=== PATIENT | female | born 1940 | race Caucasian/White ===

== ENCOUNTER → 2018-10-07 | Outpatient (CLI) | payer MEDICARE, MEDICAID ==
--- NOTE | 2018-10-07 10:15 | WOMENS IMAGING REPORT ---
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 TECHNIQUE: Dual-Energy X-ray Absorptiometry (DEXA) of the AP Spine and Hip. LIMITATIONS: None. FINDINGS: LUMBAR SPINE: The bone mineral density (BMD) measured from L1-L4 in the AP projection correlates with a T-score of -2.7, which is osteoporosis as defined by the World Health Organization. HIP: The bone mineral density (BMD) measured in the left hip correlates with a T-score of -2.2, which is o steopenia as defined by the World Health Organization. IMPRESSION: 1. LUMBAR SPINE: OSTEOPOROSIS. 2. HIP: OSTEOPENIA. COMMENT: The World Health Organization defines low BMD as follows: T-score: Normal: Greater than -1.0 Osteopenia: Between -1.0 and -2.5 Osteoporosis: Less than -2.5 without fractures Established osteoporosis: Less than -2.5 with fractures In general, you may wish to consider: Diagnosis Treatment Follow-up DEXA Normal BMD Prevention 2-3 years Osteopenia Prevention/Therapy 1-2 years Osteoporosis Therapy Yearly TECHNICAL DOCUMENTATION: JOB ID: [id number] [employer]- All Rights Reserved Reading location - IP/workstation name: [email or web address]
== END ==
LOC: WI 10:04
PROVIDERS: ATTEND Physician Assistant
DX: M81.0 Age-related osteoporosis without current pathological fracture (principal)
CPT/HCPCS: 77080

== ENCOUNTER → 2018-12-05 | Outpatient (CLI) | payer MEDICARE, MEDICAID ==
--- NOTE | 2018-12-05 14:28 | RADIOLOGY REPORT (SQ) ---
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 TECHNIQUE: CT scan performed of the chest without intravenous contrast. Images reviewed with lung, soft tissue and bone windows. Reconstructed coronal and sagittal MPR images reviewed. All images st ored on PACS. All CT scanners at this facility use dose modulation, iterative reconstruction, and/or weight based d osing when appropriate to reduce radiation dose to as low as reasonably achievable (ALARA). [facility]: Dose Right [facility]: CareDose [facility]: Dose Right [facility]: Teradose 4D [facility]: [employer] RADIATION DOSE: Total exam DLP: 1487.29 mGy. LIMITATIONS: No technical limitations. FINDINGS: LUNGS AND PLEURA: A 6-7 mm right perifissural nodule, axial image 60, series 6. Very tin y subcentimeter nodule in the periphery of the left upper lobe, axial image 38, series 6. Linear nod ular parenchymal opacity in the right middle lobe, axial images 64-68 and left lingula, axial image 6 0, series 6. Minimal linear scarring or atelectasis in the lower lobes. Slight thickening of the bro nchial prather centrally, may be on a chronic basis. No pneumothorax or pleural effusion. The central airways are clear. HILAR AND MEDIASTINAL STRUCTURES: Small to borderline mediastinal lymph nodes, several of which cont ain a hilus of fat and may be on the benign reactive basis. HEART AND VASCULAR STRUCTURES: Dense atherosclerotic changes involving the thoracic aorta. Coronary artery calcifications. No aneurysm. No pericardial effusion. UPPER ABDOMEN: Please see CT abdomen report. THYROID AND OTHER SOFT TISSUES: No masses. No adenopathy. BONES: Dextroconvex scoliosis of the thoracic spine. HARDWARE: None in the chest. OTHER: Prior right mastectomy. IMPRESSION: 1. Small bilateral subcentimeter pulmonary nodules, and linear nodular parenchymal opac ities in the right middle lobe and left lingula. A follow-up three-month noncontrast CT chest examin ation is suggested. 2. Prior right mastectomy. 3. Additional findings as above. TECHNICAL DOCUMENTATION: JOB ID: [id number] Quality ID # 436: Final reports with documentation of one or more dose reduction techniques (e.g., Au tomated exposure control, adjustment of the mA and/or kV according to patient size, use of iterative reconstruction technique) 2010 [employer]- All Rights Reserved Reading location - IP/workstation name: [email or web address]
--- NOTE | 2018-12-05 14:44 | RADIOLOGY REPORT (SQ) ---
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 TECHNIQUE: CT scan of the abdomen and pelvis performed without intravenous or oral contrast. Images reviewed with lung, soft tissue, and bone windows. Reconstructed coronal and sagittal MPR images revi ewed. All images stored on PACS. All CT scanners at this facility use dose modulation, iterative reconstruction, and/or weight based d osing when appropriate to reduce radiation dose to as low as reasonably achievable (ALARA). [facility]: Dose Right [facility]: CareDose [facility]: Dose Right [facility]: Teradose 4D [facility]: [employer] RADIATION DOSE: CT Rad equipment meets quality standard of care and radiation dose reduction techniq ues were employed. CTDIvol: 11.6 - 19.4 mGy. DLP: 1487 mGy-cm LIMITATIONS: None. FINDINGS: LOWER CHEST: Please see CT chest report. NON-CONTRASTED LIVER, SPLEEN, ADRENALS: Evaluation limited by lack of IV contrast. No identified sign ificant masses. PANCREAS: No masses. No peripancreatic inflammatory changes. GALLBLADDER: Very tiny gallstones. No inflammatory changes to suggest cholecystitis. RIGHT KIDNEY AND URETER: No suspicious masses. Assessment limited by lack of IV contrast. No signif icant calcifications. No hydronephrosis or hydroureter. LEFT KIDNEY AND URETER: No suspicious masses. Assessment limited by lack of IV contrast. No signifi cant calcifications. No hydronephrosis or hydroureter. AORTA AND RETROPERITONEUM: Left retro-aortic renal vein, normal anatomic variant. Mild atherosclero tic changes involving the abdominal aorta and branch vessels. 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 No retroperitoneal masses or adenopathy. BOWEL AND PERITONEAL CAVITY: Colonic diverticulae. Mild thickening of the wall of the sigmoid colon may be on a chronic basis related to prior inflammatory changes. No abscess. No free fluid. APPENDIX: Prior appendectomy. PELVIS, BLADDER, AND ABDOMINAL WALL: Prior hysterectomy. Small fat containing dairy umbilical herni a. No free fluid. The urinary bladder is incompletely distended. BONES: Slight Grade 1 anterolisthesis of L4 on L5 with degenerative disc disease at L4-5 and L5-S1. OTHER: No other significant finding. IMPRESSION: 1. Colonic diverticulae, more so in the region of the sigmoid colon. Mild thickening o f the wall of the sigmoid colon, may be on a chronic basis related prior inflammatory changes. 2. Very tiny gallstones. 3. Atherosclerotic changes involving the abdominal aorta. 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 4. Additional findings as above. COMMENT: Quality ID # 436: Final reports with documentation of one or more dose reduction techniques (e.g., Automated exposure control, adjustment of the mA and/or kV according to patient size, use of iterative reconstruction technique) TECHNICAL DOCUMENTATION: JOB ID: [id number] [employer]- All Rights Reserved Reading location - IP/workstation name: [email or web address]
== END ==
LOC: RAD 13:10
PROVIDERS: ATTEND Internal Medicine Hematology & Oncology
DX: C50.919 Malignant neoplasm of unspecified site of unspecified female breast (principal); C78.00 Secondary malignant neoplasm of unspecified lung; C50.911 Malignant neoplasm of unspecified site of right female breast; Z17.0 Estrogen receptor positive status [ER+]
CPT/HCPCS: 71250; 74176

== ENCOUNTER → 2020-08-03 | Outpatient (CLI) | payer MEDICARE, MEDICAID ==
--- NOTE | 2020-08-03 12:08 | RADIOLOGY REPORT (SQ) ---
EXAM DESCRIPTION: CT CHEST WITH; CT ABD/PELVIS WITH IV ONLY IMAGES COMPLETED DATE/TIME: 08/03/2020 10:10 am; 08/03/2020 10:12 am REASON FOR STUDY: LUNG CANCER; MALIGNANT NEOPLASM OF UNSP SITE OF UNSPECIFIED FEMALE BREAST C50.919 MALIGNANT NEOPLASM OF UNSP SITE OF UNSPECIFIED FEMAL C78.00 SECONDARY MALIGNANT NEOPLASM OF UNSPECI FIED LUNG R10.9 UNSPECIFIED ABDOMINAL PAIN CONTRAST TYPE AND DOSE: contrast/concentration: Isovue 350.00 mmol/ml; Total Contrast Delivered: 97. 0 ml; Total Saline Delivered: 38.9 ml RENAL FUNCTION: Creatinine 0.7 COMPARISON: None. TECHNIQUE: CT scan of the chest performed using helical scanning technique with dynamic intravenous contrast injection. Images reviewed with lung, soft tissue and bone windows. Reconstructed coronal a nd sagittal MPR images reviewed. All images stored on PACS. All CT scanners at this facility use dose modulation, iterative reconstruction, and/or weight based d osing when appropriate to reduce radiation dose to as low as reasonably achievable (ALARA). [facility]: Dose Right [facility]: CareDose [facility]: Dose Right [facility]: Teradose 4D [facility]: [employer] RADIATION DOSE: CT Rad equipment meets quality standard of care and radiation dose reduction techniq ues were employed. CTDIvol: 18.1 - 26.3 mGy. DLP: 3168 mGy-cm. . LIMITATIONS: None. FINDINGS: AXILLAE: No adenopathy. CHEST WALL: Prior right mastectomy. LUNGS: Stable bilateral pulmonary nodules. Perifissural nodule on the right again measures approxima tely 6 mm in greatest diameter. This is best demonstrated on series 4, image 24. 1.7 mm nodule in t he periphery of the left upper lobe is unchanged. This is best demonstrated on series 4, image 18. The right middle lobe and lingular nodular opacities are stable and most likely represents scar. No focal consolidation. No new nodules. No endobronchial lesions. PLEURA: No effusions. No calcifications. THYROID: No masses or significant asymmetry. HILAR AND MEDIASTINAL STRUCTURES: Stable. No pathologic adenopathy. AORTA AND GREAT VESSELS: No aneurysm. No dissection. PULMONARY ARTERIES: No identified pulmonary emboli. Study not optimized for the pulmonary arteries. HEART: No pericardial effusion. HARDWARE AND LIFELINES: None. BONES: No significant finding. OTHER: No other significant finding. IMPRESSION: Stable CT of the chest. Small parenchymal nodules most likely benign. The largest is o n the right an measures approximately 6 mm in diameter. This is perifissural in location. COMPARISON: None. RADIATION DOSE: CT Rad equipment meets quality standard of care and radiation dose reduction techniq ues were employed. CTDIvol: 18.1 - 26.3 mGy. DLP: 3168 mGy-cm. mGy. TECHNIQUE: CT scan of the abdomen and pelvis performed with intravenous and oral contrast using ricky mike scanning technique with dynamic intravenous contrast injection. Images reviewed with lung, soft tissue and bone windows. Reconstructed coronal and sagittal MPR images reviewed. Delayed images for evaluation of the urinary system also acquired and evaluated. All images stored on PACS. All CT scanners at this facility use dose modulation, iterative reconstruction, and/or weight based d osing when appropriate to reduce radiation dose to as low as reasonably achievable (ALARA). [facility]: Dose Right [facility]: [employer] [facility]: Dose Right [facility]: Teradose 4D [facility]: [employer] FINDINGS: LIVER: Normal size. No masses. No dilated ducts. SPLEEN: Normal size. No focal lesions. PANCREAS: No masses. No significant calcifications. No adjacent inflammation or peripancreatic flui d collections. Pancreatic duct not dilated. GALLBLADDER: No identified stones by CT criteria. No inflammatory changes to suggest cholecystitis. ADRENAL GLANDS: No significant masses or asymmetry. RIGHT KIDNEY AND URETER: No solid masses. No significant calcifications. No hydronephrosis or hyd roureter. LEFT KIDNEY AND URETER: No solid masses. No significant calcifications. No hydronephrosis or hydr oureter. AORTA AND VESSELS: Stable in appearance. Atherosclerotic change. Probable short-segment chronic dis section or complex plaque. RETROPERITONEUM: No retroperitoneal adenopathy, hemorrhage or masses. LARGE AND SMALL BOWEL: Scattered diverticuli. No acute diverticulitis. APPENDIX: Prior appendectomy. ABDOMINAL WALL: No hernia or masses. PERITONEAL CAVITY: No free air. No free fluid. No peritoneal implants or masses. PELVIS: No mass or free fluid. Normal bladder. BONES: Degenerative changes in the spine with grade 1 anterolisthesis of L4 on L5. OTHER: No other significant finding. IMPRESSION: No evidence of metastatic disease in the abdomen or pelvis. TECHNICAL DOCUMENTATION: JOB ID: [id number] Quality ID # [id number]: Final reports with documentation of one or more dose reduction techniques (e.g., Au tomated exposure control, adjustment of the mA and/or kV according to patient size, use of iterative reconstruction technique) 2010 [employer]- All Rights Reserved Reading location - IP/workstation name: [email or web address]
--- NOTE | 2020-08-03 14:58 | RADIOLOGY REPORT (SQ) ---
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 RADIONUCLIDE AND DOSE: 21.2 millicuries Tc99m MDP. The route of agent administration: Intravenous. ADDITIONAL DRUGS AND DOSES: None. TECHNIQUE: Routine delayed images at 3 hour post radionuclide injection acquired of the bony skeleto n including anterior and posterior whole-body projections and additional focused images as needed. LIMITATIONS: None. FINDINGS: BONES: Normal visualization without areas of photopenia or increased bony uptake of radiop harmaceutical. KIDNEYS: Symmetric excretion without obstruction. OTHER: No other significant finding. IMPRESSION: NORMAL BONE SCAN. COMMENT: Quality measure 147: Current bone scan is compared with any available plain radiographs, p rior bone scans, and CT/MRI. TECHNICAL DOCUMENTATION: JOB ID: [id number] 2010 [employer]- All Rights Reserved Reading location - IP/workstation name: [email or web address]
--- OUTSIDE RECORDS SUMMARY | 2020-08-04 18:21 | XMS REPORT ---
:1940 Author Organization [facility] [address] [place] [address] Care Team Providers Name Role Phone Adria LOTT Attending Clinician Unavailable Girish LOTT Attending Clinician Unavailable Allergies, Adverse Reactions, Alerts This patient has no known allergies or adverse reactions. Medications This patient has no known medications. Problems This patient has no known problems. Procedures Procedure Date / Time Performed Performing Clinician Devic e OFFICE/OUTPATIENT VISIT, EST 2017-03-14 10:00:00 ASSAY THYROID STIM HORMONE 2017-03-14 10:00:00 ROUTINE VENIPUNCTURE 2017-03-14 10:00:00 ROUTINE VENIPUNCTURE 2016-12-04 11:00:00 ASSAY THYROID STIM HORMONE 2016-12-04 11:00:00 OFFICE/OUTPATIENT VISIT, EST 2016-12-04 11:00:00 ASSAY, TRIIODOTHYRONINE (T3) 2016-08-07 10:15:00 ASSAY OF FREE THYROXINE 2016-08-07 10:15:00 ROUTINE VENIPUNCTURE 2016-08-07 10:15:00 OFFICE/OUTPATIENT VISIT, EST 2016-08-07 10:15:00 ASSAY THYROID STIM HORMONE 2016-08-07 10:15:00 ROUTINE VENIPUNCTURE 2016-04-23 11:30:00 ASSAY THYROID STIM HORMONE 2016-04-23 11:30:00 OFFICE/OUTPATIENT VISIT, EST 2016-04-23 11:30:00 ASSAY OF FREE THYROXINE 2016-04-23 11:30:00 OFFICE/OUTPATIENT VISIT, EST 2016-01-03 10:45:00 GLYCOSYLATED HEMOGLOBIN TEST 2016-01-03 10:45:00 ROUTINE VENIPUNCTURE 2016-01-03 10:45:00 ASSAY THYROID STIM HORMONE 2016-01-03 10:45:00 LIPID PANEL 2016-01-03 10:45:00 COMPREHEN METABOLIC PANEL 2016-01-03 10:45:00 OFFICE/OUTPATIENT VISIT, EST 2015-10-04 10:45:00 OFFICE/OUTPATIENT VISIT, EST 2015-07-04 12:15:00 ASSAY OF CK (CPK) 2015-07-04 12:15:00 ROUTINE VENIPUNCTURE 2015-07-04 12:15:00 LIPID PANEL 2015-07-04 12:15:00 GLYCOSYLATED HEMOGLOBIN TEST 2015-07-04 12:15:00 COMPREHEN METABOLIC PANEL 2015-07-04 12:15:00 OFFICE/OUTPATIENT VISIT, EST 2015-03-24 14:15:00 SPECIAL REPORTS OR FORMS 2014-12-28 00:00:00 ROUTINE VENIPUNCTURE 2014-12-20 14:00:00 OFFICE/OUTPATIENT VISIT, EST 2014-12-20 14:00:00 ASSAY OF CK (CPK) 2014-12-20 14:00:00 ASSAY THYROID STIM HORMONE 2014-12-20 14:00:00 COMPREHEN METABOLIC PANEL 2014-12-20 14:00:00 GLYCOSYLATED HEMOGLOBIN TEST 2014-12-20 14:00:00 LIPID PANEL 2014-12-20 14:00:00 OFFICE/OUTPATIENT VISIT, EST 2014-10-13 14:30:00 OFFICE/OUTPATIENT VISIT, EST 2014-09-22 15:30:00 COMPREHEN METABOLIC PANEL 2014-06-10 10:15:00 URINALYSIS, AUTO, W/O SCOPE 2014-06-10 10:15:00 OFFICE/OUTPATIENT VISIT, EST 2014-06-10 10:15:00 ASSAY OF CK (CPK) 2014-06-10 10:15:00 GLYCOSYLATED HEMOGLOBIN TEST 2014-06-10 10:15:00 LIPID PANEL 2014-06-10 10:15:00 ROUTINE VENIPUNCTURE 2014-06-10 10:15:00 ASSAY THYROID STIM HORMONE 2014-06-10 10:15:00 ASSAY THYROID STIM HORMONE 2014-03-08 10:00:00 ROUTINE VENIPUNCTURE 2014-03-08 10:00:00 OFFICE/OUTPATIENT VISIT, EST 2014-03-08 10:00:00 ROUTINE VENIPUNCTURE 2014-01-14 09:30:00 ASSAY THYROID STIM HORMONE 2014-01-14 09:30:00 Results Test Description Test Time Test Comments Text Results Atomic Results Result Comments TSH 2017-03-14 10:27:00 Test Item Value Reference Range Comments TSH (test code = TSH) 3.58 UIU/ML 0.50-5.80 LIPID [id number] 10:27:00 Test Item Value Reference Range Comments TGL (test code = TGL) 272 MG/DL 30-200 CHOL (test code = CHOL) 182 MG/DL 140-200 HDL (test code = HDL) 59 MG/DL 32-96 CHD (test code = CHD) 32.42 DLDL (test code = DLDL) 84 MG/DL 100-130 CHEM [id number] 10:27:00 Test Item Value Reference Range Comments TP (test code = TP) 7.1 G/DL 6.9-8.5 CO2 (test code = CO2) 26.1 MMOL/L 21.0-32.0 CA (test code = CA) 9.1 MG/DL 8.5-10.1 GLU (test code = GLU) 118 MG/DL 70-110 BUN/CREAT RATIO (test code = BUN/CREAT RATIO) 19 10 -14 ION GAP (test code = ION GAP) 15 4-16 EGFRAA (test code = EGFRAA) 78.21 >60.00 EGFR (test code = EGFR) 64.53 >60.00 BUN (test code = BUN) 17 MG/DL 7-18 ALB (test code = ALB) 3.8 G/DL 3.2-4.7 ALT (test code = ALT) 27 U/L 9-61 CR (test code = CR) 0.9 MG/DL 0.4-1.3 NA (test code = NA) 138 MMOL/L 136-145 GLOB (test code = GLOB) 3.3 1.9-4.5 ALK PHOS (test code = ALK PHOS) 133 U/L 50-136 K (test code = K) 3.6 MMOL/L 3.5-5.1 AST (test code = AST) 21 U/L 9-37 BILT (test code = BILT) 0.3 MG/DL 0.1-1.0 CL (test code = CL) 101 MMOL/L 98-110 [id number] 10:27:00 Test Item Value Reference Range Comments HA1C (test code = HA1C) 6.0 % 4.8-6.0 [id number] 12:07:00 Test Item Value Reference Range Comments HA1C (test code = HA1C) 5.9 % 4.8-6.0 [id number] 12:07:00 Test Item Value Reference Range Comments TSH (test code = TSH) 2.31 UIU/ML 0.50-5.80 CHEM [id number] 12:07:00 Test Item Value Reference Range Comments CL (test code = CL) 105 MMOL/L 98-110 EGFR (test code = EGFR) 86.31 >60.00 BUN (test code = BUN) 14 MG/DL 7-18 TP (test code = TP) 6.9 G/DL 6.9-8.5 BUN/CREAT RATIO (test code = BUN/CREAT RATIO) 20 10 -14 CR (test code = CR) 0.7 MG/DL 0.4-1.3 AST (test code = AST) 22 U/L 9-37 K (test code = K) 4.1 MMOL/L 3.5-5.1 ION GAP (test code = ION GAP) 14 4-16 BILT (test code = BILT) 0.3 MG/DL 0.1-1.0 CO2 (test code = CO2) 26.8 MMOL/L 21.0-32.0 ALT (test code = ALT) 25 U/L 9-61 CA (test code = CA) 9.0 MG/DL 8.5-10.1 EGFRAA (test code = EGFRAA) 104.60 >60.00 NA (test code = NA) 142 MMOL/L 136-145 ALB (test code = ALB) 3.5 G/DL 3.2-4.7 GLOB (test code = GLOB) 3.4 1.9-4.5 ALK PHOS (test code = ALK PHOS) 128 U/L 50-136 GLU (test code = GLU) 99 MG/DL 70-110 LIPID [id number] 12:07:00 Test Item Value Reference Range Comments CHOL (test code = CHOL) 167 MG/DL 140-200 HDL (test code = HDL) 68 MG/DL 32-96 TGL (test code = TGL) 129 MG/DL 30-200 DLDL (test code = DLDL) 77 MG/DL 100-130 CHD (test code = CHD) 40.72 FREE T4.2016-08-07 11:39:00 Test Item Value Reference Range Comments FT4 (test code = FT4) 1.33 NG/DL 0.75-1.54 LIPID [id number] 11:39:00 Test Item Value Reference Range Comments CHOL (test code = CHOL) 157 MG/DL 140-200 TGL (test code = TGL) 173 MG/DL 30-200 DLDL (test code = DLDL) 70 MG/DL 100-130 HDL (test code = HDL) 65 MG/DL 32-96 CHD (test code = CHD) 41.40 [id number] 11:39:00 Test Item Value Reference Range Comments TSH (test code = TSH) 1.16 UIU/ML 0.50-5.80 [id number] 11:39:00 Test Item Value Reference Range Comments HA1C (test code = HA1C) 5.9 % 4.8-6.0 CHEM [id number] 11:39:00 Test Item Value Reference Range Comments GLU (test code = GLU) 106 MG/DL 70-110 CL (test code = CL) 99 MMOL/L 98-110 ION GAP (test code = ION GAP) 11 4-16 CO2 (test code = CO2) 31.7 MMOL/L 21.0-32.0 CR (test code = CR) 0.7 MG/DL 0.4-1.3 NA (test code = NA) 138 MMOL/L 136-145 TP (test code = TP) 7.2 G/DL 6.9-8.5 BUN (test code = BUN) 12 MG/DL 7-18 GLOB (test code = GLOB) 3.3 1.9-4.5 CA (test code = CA) 9.6 MG/DL 8.5-10.1 AST (test code = AST) 25 U/L 9-37 K (test code = K) 3.7 MMOL/L 3.5-5.1 EGFR (test code = EGFR) 86.38 >60.00 ALK PHOS (test code = ALK PHOS) 138 U/L 50-136 ALB (test code = ALB) 3.9 G/DL 3.2-4.7 BUN/CREAT RATIO (test code = BUN/CREAT RATIO) 17 10 -14 EGFRAA (test code = EGFRAA) 104.69 >60.00 ALT (test code = ALT) 32 U/L 9-61 BILT (test code = BILT) 0.6 MG/DL 0.1-1.0 25 [place] VITAMIN D [id number] 11:39:00 Test Item Value Reference Range Comments VIT D (test code = VIT D) 31 NG/ML 30-100 TOTAL [id number] 11:39:00 Test Item Value Reference Range Comments TT3 (test code = TT3) 1.08 NG/ML 0.70-1.70 LIPID [id number] 12:17:00 Test Item Value Reference Range Comments TGL (test code = TGL) 135 MG/DL 30-200 HDL (test code = HDL) 56 MG/DL 32-96 CHOL (test code = CHOL) 140 MG/DL 140-200 CHD (test code = CHD) 40.00 DLDL (test code = DLDL) 66 MG/DL 100-130 25 OH VITAMIN D [id number] 12:17:00 Test Item Value Reference Range Comments VIT D (test code = VIT D) 34 N NG/ML 30-100 [id number] 12:17:00 Test Item Value Reference Range Comments HA1C (test code = HA1C) 6.0 % 4.8-6.0 TOTAL 12:17:00 Test Item Value Reference Range Comments TT3 (test code = TT3) 1.22 NG/ML 0.70-1.70 FREE T4.2016-04-23 12:17:00 Test Item Value Reference Range Comments FT4 (test code = FT4) 1.18 NG/DL 0.75-1.54 [id number] 12:17:00 Test Item Value Reference Range Comments TSH (test code = TSH) 1.85 UIU/ML 0.50-5.80 CHEM [id number] 12:17:00 Test Item Value Reference Range Comments CL (test code = CL) 99 MMOL/L 98-110 CR (test code = CR) 0.7 MG/DL 0.4-1.3 GLU (test code = GLU) 111 MG/DL 70-110 BILT (test code = BILT) 0.5 MG/DL 0.1-1.0 K (test code = K) 3.4 MMOL/L 3.5-5.1 BUN (test code = BUN) 6 MG/DL 7-18 GLOB (test code = GLOB) 3.5 1.9-4.5 BUN/CREAT RATIO (test code = BUN/CREAT RATIO) 9 10 -14 NA (test code = NA) 137 MMOL/L 136-145 EGFR (test code = EGFR) 86.45 >60.00 AST (test code = AST) 25 U/L 9-37 EGFRAA (test code = EGFRAA) 104.77 >60.00 ALT (test code = ALT) 29 U/L 9-61 ALK PHOS (test code = ALK PHOS) 143 U/L 50-136 ION GAP (test code = ION GAP) 13 4-16 CO2 (test code = CO2) 28.9 MMOL/L 21.0-32.0 TP (test code = TP) 7.1 G/DL 6.9-8.5 ALB (test code = ALB) 3.6 G/DL 3.2-4.7 CA (test code = CA) 9.1 MG/DL 8.5-10.1 [id number] 10:54:00 Test Item Value Reference Range Comments HA1C (test code = HA1C) 5.7 % 4.8-6.0 CHEM [id number] 10:54:00 Test Item Value Reference Range Comments EGFRAA (test code = EGFRAA) 89.88 >60.00 ALB (test code = ALB) 3.3 G/DL 3.2-4.7 AST (test code = AST) 29 U/L 9-37 TP (test code = TP) 6.2 G/DL 6.9-8.5 GLU (test code = GLU) 102 MG/DL 70-110 GLOB (test code = GLOB) 2.9 1.9-4.5 CL (test code = CL) 104 MMOL/L 98-110 CA (test code = CA) 9.3 MG/DL 8.5-10.1 CO2 (test code = CO2) 27.4 MMOL/L 21.0-32.0 K (test code = K) 3.8 MMOL/L 3.5-5.1 ALT (test code = ALT) 23 U/L 9-61 ALK PHOS (test code = ALK PHOS) 84 U/L 50-136 BILT (test code = BILT) 0.4 MG/DL 0.1-1.0 EGFR (test code = EGFR) 74.16 >60.00 ION GAP (test code = ION GAP) 12 4-16 NA (test code = NA) 140 MMOL/L 136-145 CR (test code = CR) 0.8 MG/DL 0.4-1.3 BUN (test code = BUN) 6 MG/DL 7-18 BUN/CREAT RATIO (test code = BUN/CREAT RATIO) 8 10 -14 LIPID [id number] 10:54:00 Test Item Value Reference Range Comments DLDL (test code = DLDL) 75 MG/DL 100-130 CHD (test code = CHD) 36.49 HDL (test code = HDL) 54 MG/DL 32-96 CHOL (test code = CHOL) 148 MG/DL 140-200 TGL (test code = TGL) 137 MG/DL 30-200 [id number] 10:54:00 Test Item Value Reference Range Comments TSH (test code = TSH) 3.53 UIU/ML 0.50-5.80 CHEM [id number] 12:37:00 Test Item Value Reference Range Comments CL (test code = CL) 100 MMOL/L 98-110 EGFRAA (test code = EGFRAA) 78.57 >60.00 ALB (test code = ALB) 3.4 G/DL 3.2-4.7 CO2 (test code = CO2) 28.8 MMOL/L 21.0-32.0 AST (test code = AST) 26 U/L 9-37 EGFR (test code = EGFR) 64.82 >60.00 BUN/CREAT RATIO (test code = BUN/CREAT RATIO) 8 10 -14 NA (test code = NA) 139 MMOL/L 136-145 TP (test code = TP) 6.9 G/DL 6.9-8.5 BILT (test code = BILT) 0.6 MG/DL 0.1-1.0 CR (test code = CR) 0.9 MG/DL 0.4-1.3 BUN (test code = BUN) 7 MG/DL 7-18 ALK PHOS (test code = ALK PHOS) 123 U/L 50-136 ALT (test code = ALT) 30 U/L 9-61 CA (test code = CA) 9.5 MG/DL 8.5-10.1 K (test code = K) 3.3 MMOL/L 3.5-5.1 GLU (test code = GLU) 148 MG/DL 70-110 GLOB (test code = GLOB) 3.5 1.9-4.5 ION GAP (test code = ION GAP) 14 4-16 CK [id number] 12:37:00 Test Item Value Reference Range Comments CKT (test code = CKT) 32 U/L 26-192 [id number] 12:37:00 Test Item Value Reference Range Comments TSH (test code = TSH) 4.02 UIU/ML 0.50-5.80 [id number] 12:37:00 Test Item Value Reference Range Comments HA1C (test code = HA1C) 5.8 % 4.8-6.0 LIPID [id number] 12:37:00 Test Item Value Reference Range Comments HDL (test code = HDL) 59 MG/DL 32-96 TGL (test code = TGL) 132 MG/DL 30-200 CHOL (test code = CHOL) 147 MG/DL 140-200 CHD (test code = CHD) 40.14 DLDL (test code = DLDL) 66 MG/DL 100-130 [id number] 14:21:00 Test Item Value Reference Range Comments TSH (test code = TSH) 3.20 UIU/ML 0.50-5.80 LIPID [id number] 14:20:00 Test Item Value Reference Range Comments TGL (test code = TGL) 282 MG/DL 30-200 CHD (test code = CHD) 19.42 HDL (test code = HDL) 47 MG/DL 32-96 CHOL (test code = CHOL) 242 MG/DL 140-200 DLDL (test code = DLDL) 141 MG/DL 100-130 CK [id number] 14:20:00 Test Item Value Reference Range Comments CKT (test code = CKT) 27 U/L 26-192 CHEM [id number] 14:20:00 Test Item Value Reference Range Comments EGFRAA (test code = EGFRAA) 78.68 >60.00 CR (test code = CR) 0.9 MG/DL 0.4-1.3 TP (test code = TP) 6.7 G/DL 6.9-8.5 ION GAP (test code = ION GAP) 12 4-16 NA (test code = NA) 140 MMOL/L 136-145 ALT (test code = ALT) 33 U/L 9-61 ALK PHOS (test code = ALK PHOS) 136 U/L 50-136 ALB (test code = ALB) 3.1 G/DL 3.2-4.7 GLU (test code = GLU) 90 MG/DL 70-110 K (test code = K) 3.2 MMOL/L 3.5-5.1 CO2 (test code = CO2) 34.1 MMOL/L 21.0-32.0 CL (test code = CL) 97 MMOL/L 98-110 CA (test code = CA) 9.3 MG/DL 8.5-10.1 BILT (test code = BILT) 0.3 MG/DL 0.1-1.0 AST (test code = AST) 21 U/L 9-37 GLOB (test code = GLOB) 3.6 1.9-4.5 EGFR (test code = EGFR) 64.92 >60.00 BUN/CREAT RATIO (test code = BUN/CREAT RATIO) 6 10 -14 BUN (test code = BUN) 5 MG/DL 7-18 [id number] 14:20:00 Test Item Value Reference Range Comments HA1C (test code = HA1C) 6.0 % 4.8-6.0 [id number] 10:34:00 Test Item Value Reference Range Comments TSH (test code = TSH) 5.00 UIU/ML 0.50-5.80 URINE [id number] 10:33:00 Test Item Value Reference Range Comments CORIN (test code = CORIN) None None URBC (test code = URBC) None None EPI (test code = EPI) 1-2 None UWBC (test code = UWBC) 2-4 NONE [id number] 10:33:00 Test Item Value Reference Range Comments HA1C (test code = HA1C) 6.1 % 4.8-6.0 [id number] 10:33:00 Test Item Value Reference Range Comments CLAR (test code = CLAR) Clear Clear UUROBIL (test code = UUROBIL) 0.2 E.U./dL 0.2, 1.0 UBIL (test code = UBIL) Negative MG/DL Negative UBLD (test code = UBLD) Negative Negative PH (test code = PH) 6.0 TPU (test code = TPU) Negative Negative SPGR (test code = SPGR) 1.015 1.010-1.030 UGLU (test code = UGLU) Negative Negative COLOR (test code = COLOR) Yellow Yellow UKET (test code = UKET) Negative Negative CARI (test code = CARI) 1+ Negative NIT (test code = NIT) Negative Negative CK [id number] 10:33:00 Test Item Value Reference Range Comments CKT (test code = CKT) 25 U/L 26-192 [id number] [id number] 10:33:00 Test Item Value Reference Range Comments CA (test code = CA) 9.7 MG/DL 8.5-10.1 K (test code = K) 3.6 MMOL/L 3.5-5.1 EGFRAA (test code = EGFRAA) 78.79 >60.00 ALK PHOS (test code = ALK PHOS) 142 U/L 50-136 AST (test code = AST) 31 U/L 9-37 BUN (test code = BUN) 20 MG/DL 7-18 ION GAP (test code = ION GAP) 10 4-16 GLU (test code = GLU) 117 MG/DL 70-110 ALT (test code = ALT) 33 U/L 9-61 CR (test code = CR) 0.9 MG/DL 0.4-1.3 ALB (test code = ALB) 3.9 G/DL 3.2-4.7 CO2 (test code = CO2) 31.0 MMOL/L 21.0-32.0 NA (test code = NA) 141 MMOL/L 136-145 EGFR (test code = EGFR) 65.01 >60.00 BUN/CREAT RATIO (test code = BUN/CREAT RATIO) 22 10 -14 TP (test code = TP) 7.6 G/DL 6.9-8.5 CL (test code = CL) 104 MMOL/L 98-110 GLOB (test code = GLOB) 3.7 1.9-4.5 BILT (test code = BILT) 0.3 MG/DL 0.1-1.0 LIPID [id number] 10:33:00 Test Item Value Reference Range Comments CHD (test code = CHD) 22.14 DLDL (test code = DLDL) 169 MG/DL 100-130 CHOL (test code = CHOL) 262 MG/DL 140-200 TGL (test code = TGL) 169 MG/DL 30-200 HDL (test code = HDL) 58 MG/DL 32-96 [id number] 10:05:00 Test Item Value Reference Range Comments TSH (test code = TSH) 1.71 UIU/ML 0.50-5.80 [id number] 11:14:00 Test Item Value Reference Range Comments TSH (test code = TSH) 2.54 UIU/ML 0.50-5.80 Assessments Condition Name Status Diagnosis Date Treating Clinici an Hypothyroidism, unspecified Active Essential (primary) hypertension Active Hyperlipidemia, unspecified Active Type 2 diabetes mellitus without Active complications Hypothyroidism, unspecified Active Essential (primary) hypertension Active Hyperlipidemia, unspecified Active Type 2 diabetes mellitus without Active complications Hypothyroidism, unspecified Active Hyperlipidemia, unspecified Active Essential (primary) hypertension Active Type 2 diabetes mellitus without Active complications Hypothyroidism, unspecified Active Type 2 diabetes mellitus without Active complications Hyperlipidemia, unspecified Active Essential (primary) hypertension Active Diabetes mellitus Active Hyperlipidemia Active Diabetes mellitus Active Hyperlipidemia Active Hypothyroidism, unspecified Active Type 2 diabetes mellitus without Active complications Hyperlipidemia, unspecified Active Essential (primary) hypertension Active Diabetes mellitus Active Hyperlipidemia Active Type 2 diabetes mellitus without Active complications Essential (primary) hypertension Active Hyperlipidemia, unspecified Active Hypothyroidism, unspecified Active Essential (primary) hypertension Active Hyperlipidemia, unspecified Active Type 2 diabetes mellitus without Active complications Hypothyroidism, unspecified Active Diabetes Mellitus - Type II (Controlled) Active Hyperlipidemia (Unspecified) Active Hypertension - Benign (Essential) Active Hypothyroidism - Unspecified (acquired) Active Diabetes mellitus Active Hyperlipidemia Active Diabetes mellitus Active Hyperlipidemia Active Diabetes mellitus Active Hyperlipidemia Active Diabetes Mellitus - Type II (Controlled) Active Hyperlipidemia (Unspecified) Active Hypothyroidism - Unspecified (acquired) Active Hypertension - Benign (Essential) Active Candidiasis - Skin/Nails Active Obesity (Unspecified) Active Candidiasis - Skin/Nails Active Diabetes Mellitus - Type II (Controlled) Active Hyperlipidemia (Unspecified) Active Hypothyroidism - Unspecified (acquired) Active Hypertension - Benign (Essential) Active Hypothyroidism - Unspecified (acquired) Active Diabetes Mellitus - Type II (Controlled) Active Hyperlipidemia (Unspecified) Active Fatigue/Malaise (Other) Active Hypertensive disorder Active Hypertensive disorder Active Hypertensive disorder Active Hypertensive disorder Active Hypertensive disorder Active Hypertensive disorder Active Hypertensive disorder Active Hypertensive disorder Active Hypertensive disorder Active Hypertensive disorder Active Hypertensive disorder Active Hypertensive disorder Active Hypertensive disorder Active Encounters Start End Encounter Admission Attending Care Care Encounter Date/Time Date/Time Type Type Clinicians Facility Department ID 2017-03-14 2017-03-14 Outpatient Adria LOTT MICHELLE Pandya [id number] 10:00:00 10:00:00 [facility] [id number] Health [id number] Center, [id number] Inc. 2016-12-04 2016-12-04 Outpatient Adria LOTT MICHELLE Pandya [id number] 11:00:00 11:00:00 [facility] [id number] Health [id number] [place], [id number] Inc. 2016-08-07 2016-08-07 Outpatient Adria LOTT MICHELLE Pandya [id number] 10:15:00 10:15:00 [facility] [id number] Health [id number] [place], [id number] Inc. 2016-04-23 2016-04-23 Outpatient Girish LOTT MICHELLE Pandya [id number] 11:30:00 11:30:00 [facility] [id number] Health [id number] [place], [id number] Inc. 2016-01-03 2016-01-03 Outpatient Girish LOTT MICHELLE [place] [id number] 10:45:00 10:45:00 [facility] [id number] Health [id number] Center, [id number] Inc. 2015-10-04 2015-10-04 Outpatient Girish LOTT MICHELLE Pandya [id number] 10:45:00 10:45:00 [facility] [id number] Health [id number] [place], [id number] Inc. 2015-07-04 2015-07-04 Outpatient Girish LOTT MICHELLE Pandya [id number] 12:15:00 12:15:00 [facility] [id number] Health [id number] Center, [id number] Inc. 2015-03-24 2015-03-24 Outpatient Girish LOTTMICHELLE [id number] 14:15:00 14:15:00 [facility] [id number] Health [id number] Center, [id number] Inc. 2014-12-28 2014-12-28 Outpatient Girish LOTTMICHELLE [id number] 00:00:00 00:00:00 [facility] [id number] Health [id number] Center, [id number] Inc. 2014-12-20 2014-12-20 Outpatient Girish LOTTMICHELLE [id number] 14:00:00 14:00:00 [facility] [id number] Health [id number] Center, [id number] Inc. 2014-10-13 2014-10-13 Outpatient Girish LOTTMICHELLE [id number] 14:30:00 14:30:00 [facility] [id number] Health [id number] Center, [id number] Inc. 2014-09-22 2014-09-22 Outpatient Girish LOTTMICHELLE [id number] 15:30:00 15:30:00 [facility] [id number] Health [id number] Center, [id number] Inc. 2014-06-10 2014-06-10 Outpatient Girish LOTTMICHELLE [id number] 10:15:00 10:15:00 [facility] [id number] Health [id number] Center, [id number] Inc. 2014-03-08 2014-03-08 Outpatient Girish LOTTMICHELLE [id number] 10:00:00 10:00:00 [facility] [id number] Health [id number] Center, [id number] Inc. 2014-01-14 2014-01-14 Outpatient Girish LOTTMICHELLE [id number] 09:30:00 09:30:00 [facility] [id number] [place] [id number] [place], [address] Social History This patient has no known social history. Vital Signs This patient has no known vital signs.
== END ==
LOC: RAD 09:19
PROVIDERS: ATTEND Physician Assistant
DX: C78.02 Secondary malignant neoplasm of left lung (principal); C78.01 Secondary malignant neoplasm of right lung; C50.919 Malignant neoplasm of unspecified site of unspecified female breast; R10.9 Unspecified abdominal pain
CPT/HCPCS: 82565; 78306; 71260; 74177; A9503; Q9969